=== PATIENT | female | born 1970 | race Caucasian/White ===

== ENCOUNTER → 2018-05-21 | Outpatient (CLI) | payer OTHER | LOC: M.ULTRA 13:44 | DX: N93.9 Abnormal uterine and vaginal bleeding, unspecified (principal); Z98.871 Personal history of in utero procedure while a fetus; Z68.42 Body mass index [BMI] 45.0-49.9, adult ==

== ENCOUNTER 2019-11-12 16:19 | Observation (INO) | payer OTHER ==
[~2019-11-12] VITALS: Ht 162.6 cm; Wt 129.7 kg
[2019-11-12 16:28] VITALS: BP 189/96
[2019-11-12] MEDS ORDERED: DULOXETINE HCL30 MG PO (16:31)
[2019-11-12] MEDS ORDERED: FAMOTIDINE 20 M20 MG PO (16:31)
[2019-11-12] MEDS ORDERED: MACROBID 100 M100 MG PO (16:32)
[2019-11-12] MEDS ORDERED: ZESTRIL10 MG PO (16:32)
[2019-11-12] MEDS ORDERED: JANUMET 50-5001 EACH PO (16:33)
[2019-11-12 17:30] LABS: ABSOLUTE BASOPHILS 0.2 thou/uL (0.0-0.2); ABSOLUTE EOSINOPHILS 0.1 thou/uL (0.0-0.7); ABSOLUTE LYMPHOCYTES 3.7 thou/uL (0.8-5.3); ABSOLUTE MONOCYTES 0.9 thou/uL (0.0-1.2); ABSOLUTE NEUTROPHILS 9.7 thou/uL (1.6-8.1); BASOPHILS 1.2 %; EOSINOPHILS 0.9 %; HEMATOCRIT 42.4 % (37.0-47.0); HEMOGLOBIN 14.4 gm/dL (12.0-15.0); LYMPHOCYTES 25.3 %; MCH 28.3 pg (26.0-34.0); MCHC 33.9 g/dL (28.0-37.0); MCV 83.5 fL (80.0-100.0); MONOCYTES 6.1 %; MPV 9.5 fl. (7.2-11.1); NUCLEATED RBCS 0 /100WBC; PLATELET COUNT* 323 thou/uL (150-400); POLYS 66.5 %; RBC 5.08 mil/uL (4.20-5.00); WBC 14.5 thou/uL (4.0-11.0)
[2019-11-12 17:39] LABS: CALCIUM 9.3 mg/dL (8.5-10.1); CREATININE 0.8 mg/dL (0.6-1.3); POTASSIUM 3.9 mmol/L (3.5-5.1)
[2019-11-12 17:43] LABS: ALBUMIN 3.6 g/dL (3.4-5.0); TOTAL BILIRUBIN 0.3 mg/dL (<0.1-1.0); TOTAL PROTEIN 8.1 g/dL (6.4-8.2)
[2019-11-12 19:18] LABS: URINE BILIRUBIN NEGATIVE (Negative); URINE BLOOD TRACE (Negative); URINE CLARITY CLEAR; URINE COLOR YELLOW; URINE GLUCOSE-RANDOM NEGATIVE (Negative); URINE KETONES 1+ (Negative); URINE LEUKOCYTES-REFLEX TRACE (Negative); URINE NITRITE-REFLEX NEGATIVE (Negative); URINE PROTEIN TRACE (Negative); URINE UROBILINOGEN 0.2 E.U./dl (0.2-1.0)
[2019-11-12 19:25] LABS: SQUAMOUS >10 Many /LPF (0-3)
[2019-11-12 19:26] LABS: BACTERIA-REFLEX 1-9 Few /HPF (None Seen); CRYSTALS None Seen /LPF (None Seen); HYALINE CASTS 0-3 Few /LPF (None Seen); MUCUS >6 Heavy strn/LPF (None Seen); URINE RBC 0-2 Rare /HPF (0-2); URINE WBC-REFLEX 0-5 Rare /HPF (0-5)
[2019-11-13 00:15] VITALS: BP 116/61
[2019-11-13 02:48] LABS: ABSOLUTE BASOPHILS 0.1 thou/uL (0.0-0.2); ABSOLUTE EOSINOPHILS 0.1 thou/uL (0.0-0.7); ABSOLUTE LYMPHOCYTES 3.8 thou/uL (0.8-5.3); ABSOLUTE MONOCYTES 0.7 thou/uL (0.0-1.2); ABSOLUTE NEUTROPHILS 5.5 thou/uL (1.6-8.1); BASOPHILS 1.3 %; EOSINOPHILS 1.2 %; HEMATOCRIT 37.2 % (37.0-47.0); HEMOGLOBIN 12.9 gm/dL (12.0-15.0); MCH 28.8 pg (26.0-34.0); MCHC 34.6 g/dL (28.0-37.0); MCV 83.3 fL (80.0-100.0); MONOCYTES 6.7 %; MPV 9.1 fl. (7.2-11.1); NUCLEATED RBCS 0 /100WBC; PLATELET COUNT* 278 thou/uL (150-400); POLYS 53.8 %; RBC 4.46 mil/uL (4.20-5.00); WBC 10.3 thou/uL (4.0-11.0)
[2019-11-13 03:11] LABS: CALCIUM 8.4 mg/dL (8.5-10.1); CREATININE 0.8 mg/dL (0.6-1.3); POTASSIUM 3.9 mmol/L (3.5-5.1)
[2019-11-13 08:01] VITALS: BP 127/69
[2019-11-13 13:12] VITALS: BP 127/69
--- NOTE | 2019-11-13 13:27 | EKG ---
[place] [address] ELECTROCARDIOGRAM REPORT Name: ANDREI RASHID Room: [address]#: [id number] Admission: 11/12/19 Attend Phys: Pascual Conroy, Discharge: Date of : 70 Date of Service: 11/12/19 1648 Report #: [id number] THIS REPORT FOR: //name// [facility] ED Test Date: 2019-11-12 Test Time: 16:48:42 Pat Name: ANDREI RASHID Department: Room: [facility] Gender: F Meeting Manager: KAYKAY : 1970 Requested By: Victorino Castro Order Number: [id number] MD: Jamie Cummins Measurements Intervals [place] Rate: 82 P: 10 OR: 145 QRS: 11 QRSD: 96 T: 46 QT: 383 QTc: 448 Interpretive Statements Sinus rhythm Low voltage, precordial leads No previous ECG available for comparison Electronically Signed On 11-13-2019 13:26:38 CDT by Jamie Cummins [email or web address] <ELECTRONICALLY SIGNED> By: Jamie Cummins MD, [facility] 11/13/19 1326 1648 1648 Jamie Cummins MD, [facility] /EPI
[2019-11-13 13:31] VITALS: BP 120/69
--- NOTE | 2019-11-13 13:45 | CON ---
[address] [address] CONSULTATION Name: ANDREI RASHID Room: [address] [place]#: [id number] Admission: 11/12/19 Attend Phys: Pascual Conroy MD Discharge: Date of : 70 Report #: [id number] THIS REPORT FOR: //name// cc: Oh Deng DNP, Leopoldine DNP ~ THIS REPORT FOR: //name// CC: Pascual Vanegas MD DATE OF SERVICE: 11/13/2019 CARDIOLOGY CONSULTATION HISTORY OF PRESENT ILLNESS: The patient is a 49-year-old white female who I was asked to see in the Emergency Room today after she complained of chest pain. The patient has no previous history of heart disease. She is not very active at this time. She has a long history of diabetes, hypertension, hyperlipidemia. Recently, she was given a prescription for Janumet. She took her first dose yesterday morning. Yesterday afternoon, she felt nauseated. She was trembling, felt short of breath, diaphoretic, and weak. Her brought her to the Emergency Room. Lab was drawn. She was noted to have an abnormal troponin. Cardiology consultation was requested. The patient denies a history of exertional chest tightness. She does get short of breath when she exerts herself and has occasional edema. She notes occasional irregular heartbeat, no syncope. She denies any recent fever or cough. Since she came to the Emergency Room yesterday she has had an intermittent discomfort in her chest. It tends to come and go. There is no radiation of the pain. She denied any belching or cough. She has had no recent bleeding. PAST MEDICAL HISTORY: She has had appendectomy, hernia repair. She is going through menopause after uterine ablation. MEDICATIONS: Her medications on admission consisted of duloxetine, Pepcid, lisinopril. She recently was prescribed Janumet. She wants to start a statin drug for hyperlipidemia. ALLERGIES: She has no known drug allergies. FAMILY HISTORY: Positive for heart disease. SOCIAL HISTORY: She is . She and her live in [place]. 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 Quit smoking years ago. [place] [address] CONSULTATION Name: ANDREI RASHID Room: [address] [place]#: [id number] Admission: 11/12/19 Attend Phys: Pascual Conroy MD Discharge: Date of : 70 Report #: [id number] REVIEW OF SYSTEMS: She is overweight, being 5 feet 4 inches and 286 pounds. She has no history of sleep apnea, stroke, liver disease, kidney disease or cancer. She saw a psychiatrist in the past for depression. She has been diagnosed with fibromyalgia. PHYSICAL EXAMINATION: GENERAL: Revealed a large middle-aged female lying in bed. She appeared in no distress. VITAL SIGNS: She had a blood pressure of 130/70, pulse 70. She is afebrile. HEENT: She was anicteric. Conjunctivae are pink. Mucous members are moist. NECK: Neck veins are difficult to assess due to obesity. No carotid bruits. CHEST: Clear to auscultation. CARDIOVASCULAR: Regular rate without murmur. ABDOMEN: Obese. EXTREMITIES: Had no edema. Dorsalis pedis pulse could not be palpated. SKIN: Cool and dry. NEUROLOGIC: Nonfocal. LYMPH: No adenopathy. MUSCULOSKELETAL: No joint effusion. RADIOLOGICAL DATA: ECG shows a sinus rhythm, but no significant ST or T-wave changes were noted. Workup in the Emergency Room: Sodium 139, potassium 3.9, glucose 129. Liver function studies were normal. Troponins all less than 0.06. White blood cell count 10.3, hemoglobin 12.9. The patient had portable chest x-ray that showed normal heart size, clear lung sanders. CT scan of the head performed without contrast showed no acute abnormality. IMPRESSION AND RECOMMENDATIONS: 1. Chest pain. Atypical for angina. There is no ECG changes noted. There is no significant rise in troponin. Suspect noncardiac. Recommend no further cardiac evaluation. 2. Diabetes. 3. Hypertension. The patient is on ODETTE inhibitor. 4. Hyperlipidemia. The patient recently started on a statin drug. 5. Morbid obesity. 6. Shortness of breath, suspect secondary to exercise intolerance. <ELECTRONICALLY SIGNED> By: Jmaie Cummins MD, FACC 11/13/19 1345 1153 [id number] Cumimns MD, FACC /nt
[2019-11-14 02:06] LABS: GLYCOHEMOGLOBIN (HGB A1C) 8.3 % (4.8-5.6)
== END 2019-11-13 13:31 | disposition home or self-care (01) ==
LOC: M.ERS 16:19 → M.TBA-ER 19:53
PROVIDERS: Physician Assistant; ADMIT Internal Medicine; ATTEND Internal Medicine
DX: R42 Dizziness and giddiness (principal); R07.89 Other chest pain; R61 Generalized hyperhidrosis; I10 Essential (primary) hypertension; E78.5 Hyperlipidemia, unspecified; E11.9 Type 2 diabetes mellitus without complications; E66.01 Morbid (severe) obesity due to excess calories; K21.9 Gastro-esophageal reflux disease without esophagitis